=== PATIENT | female | born 1960 | race Caucasian/White ===

== ENCOUNTER 2017-10-27 18:06 | Emergency (ER) | payer BC, OTHER ==
[~2017-10-27] VITALS: Wt 81.4 kg
--- NOTE | 2017-10-27 19:24 | ERD ---
ER Documentation Chief Complaint Chief Complaint SOB, BREAST CA, ON CHEMO, SENT BY PMD FOR LOW H/H HPI The patient is a 57-year-old female, presenting to the ER because of abnormal lab, low hemoglobin. She was advised by her oncologist to go to the hospital. She is having chemotherapy for breast cancer and had received blood transfusion about a month ago. He is awaiting for mastectomy by surgeon Dr. Lema. She denies weakness, syncope, near syncope, neck pain, chest pain, dyspnea, abdominal pain. Does not smoke nor drink Past medical history: History of breast cancer Surgical history: None ROS All systems reviewed and are negative except as per history of present illness. Medications Home Meds Reported Medications Propranolol Hcl* (Propranolol Hcl*) 40 Mg Tablet, 40 MG PO BID, TAB 10/27/17 Allergies Allergies: Coded Allergies: No Known Allergy (Unverified , 10/27/17) Physical Exam Vitals Vital Signs Date Time Temp Pulse Resp B/P Pulse Ox O2 Delivery O2 Flow Rate FiO2 10/28/17 04:31 72 22 113/72 96 Room Air 10/28/17 01:00 70 19 106/80 96 Room Air 10/27/17 23:06 74 21 117/58 99 Room Air 10/27/17 20:17 76 17 123/94 98 Room Air 10/27/17 18:12 97.3 83 17 125/69 100 Physical Exam Const: No acute distress. Head: Atraumatic. Eyes: Normal Conjunctiva. ENT: Normal External Ears, Nose and Mouth. Neck: Full range of motion. No meningismus. Resp: Clear to auscultation bilaterally. Cardio: Regular rate and rhythm. Abd: Soft, non distended, normal bowel sounds, non tender. Skin: No petechiae or rashes. Back: No midline or flank tenderness. Ext: No cyanosis, or edema. Neur: Awake and alert. No focal deficit Psych: Normal Mood and Affect. Result Diagram: 10/27/17192910/27/171929 Results 24 hrs Laboratory Tests Test 10/27/17 19:30 10/28/17 08:05 White Blood Count 3.410^3/ul Red Blood Count 2.2510^6/ul Hemoglobin 7.4g/dl Hematocrit 21.8% Mean Corpuscular Volume 96.9fl Mean Corpuscular Hemoglobin 32.9pg Mean Corpuscular Hemoglobin Concent 33.9g/dl Red Cell Distribution Width 19.5% Platelet Count 28904^3/UL Mean Platelet Volume 9.8fl Neutrophils % 54.1% Lymphocytes % 36.8% Monocytes % 8.8% Eosinophils % 0.3% Basophils % 0.0% Nucleated Red Blood Cells % 0.0/100WBC Neutrophils # 1.910^3/ul Lymphocytes # 1.310^3/ul Monocytes # 0.310^3/ul Eosinophils # 0.010^3/ul Basophils # 0.010^3/ul Nucleated Red Blood Cells # 0.010^3/ul Prothrombin Time 13.2Sec Prothrombin Time Ratio 1.0 INR International Normalized Ratio 0.99 Activated Partial Thromboplast Time 35.4Sec Sodium Level 144mmol/L Potassium Level 3.1mmol/L Chloride Level 103mmol/L Carbon Dioxide Level 32mmol/L Anion Gap 12 Blood Urea Nitrogen 15mg/dl Creatinine 1.12mg/dl Glucose Level 95mg/dl Calcium Level 9.0mg/dl Total Bilirubin 0.7mg/dl Direct Bilirubin 0.00mg/dl Indirect Bilirubin 0.7mg/dl Aspartate Amino Transf (AST/SGOT) 27IU/L Alanine Aminotransferase (ALT/SGPT) 35IU/L Alkaline Phosphatase 41IU/L Total Protein 6.5g/dl Albumin 3.6g/dl Globulin 2.90g/dl Albumin/Globulin Ratio 1.24 Lab Scanned Report BLOOD [id number] Current Medications Medications (Trade) Dose Ordered Sig/Robert Route PRN Reason Start Time Stop Time Status Last Admin Dose Admin Potassium Chloride 40 meq 40 meq ONCE STAT PO 10/27/17 20:25 10/27/17 20:28 DC 10/27/17 21:02 Sodium Chloride (NS) 1,000 ml @ 100 mls/hr Q10H IV 10/28/17 16:00 10/28/17 16:00 DC IV Flush (NS 3 ml) 3 ml PER PROTOCOL IV 10/28/17 05:00 10/28/17 09:32 DC Ondansetron HCl (Zofran Inj) 4 mg Q6H PRN IV NAUSEA AND/OR VOMITING 10/28/17 05:00 10/28/17 09:32 DC Acetaminophen (Tylenol Tab) 650 mg Q6H PRN PO PAIN LEVEL 1-3 OR FEVER 10/28/17 05:00 10/28/17 09:32 DC Morphine Sulfate (morphine) 2 mg Q4H PRN IV SEVERE PAIN LEVEL 7-10 10/28/17 05:00 10/28/17 09:32 DC Pantoprazole (Protonix Iv) 40 mg DAILY@06 IV 10/28/17 06:00 10/28/17 09:32 DC Procedures/MDM EKG: Read by emergency physician Rate/Rhythm: Normal Sinus Rhythm 68 beats/min QRS, ST, T-waves: No ST elevation, no T inversion Impression: Normal EKG MEDICAL MAKING DECISION: The patient is a 57-year-old female, presenting with acute on chronic anemia most likely due to ongoing chemotherapy for her cancer, hypokalemia. I do not suspect any acute GI bleed. She will be treated with 1 unit packed red blood cell prior to being discharged. She is treated with KCL 40 meQ po, is stable for o/p f/u The differential diagnoses considered include but are not limited to gastritis, peptic ulcer disease, esophageal varices, Vianey-Juárez tear, carcinoma, polyp, hemorrhoid, fissure, diverticulosis, angiodysplasia. Departure Diagnosis: Primary Impression: Anemia Additional Impressions: Hypokalemia Leukopenia Condition: Good Comments I discussed the findings with the patient. I advised the patient to follow-up with the primary physician in about 1-2 days, sooner if needed and return if any concern. Disclaimer: Inadvertent spelling and grammatical errors are likely due to EHR/ dictation software use and do not reflect on the overall quality of patient care. Also, please note that the electronic time recorded on this note does not necessarily reflect the actual time of the patient encounter. JOHANNA DAVIS MD Oct 27, 2017 19:24
[2017-10-27 20:14] LABS: EOSINOPHILS % 0.3 % (0.0-7.0); HEMATOCRIT 21.8 % (37.0-47.0); HEMOGLOBIN 7.4 g/dl (12.0-16.0); LYMPHOCYTES # 1.3 10^3/ul (0.8-2.9); LYMPHOCYTES % 36.8 % (15.0-51.0); MEAN CORPUSCULAR HEMOGLOBIN 32.9 pg (29.0-33.0); MEAN CORPUSCULAR HGB CONC 33.9 g/dl (32.0-37.0); MEAN CORPUSCULAR VOLUME 96.9 fl (82.0-101.0); MEAN PLATELET VOLUME 9.8 fl (7.4-10.4); MONOCYTE # 0.3 10^3/ul (0.3-0.9); MONOCYTES % 8.8 % (0.0-11.0); NEUTROPHIL # 1.9 10^3/ul (1.6-7.5); NEUTROPHILS % 54.1 % (39.0-77.0); PLATELET COUNT 160 10^3/UL (140-415); RED BLOOD COUNT 2.25 10^6/ul (4.20-5.40); RED CELL DISTRIBUTION WIDTH 19.5 % (11.5-14.5); WHITE BLOOD COUNT 3.4 10^3/ul (4.8-10.8)
[2017-10-27 20:18] LABS: INR 0.99; PROTIME 13.2 Sec (11.9-14.9)
[2017-10-27 20:19] LABS: PARTIAL THROMBOPLASTIN TIME 35.4 Sec (25.0-35.0)
[2017-10-27 20:21] LABS: ALBUMIN 3.6 g/dl (3.3-4.9); ALBUMIN/GLOBULIN RATIO 1.24; BILIRUBIN,INDIRECT 0.7 mg/dl (0-1.1); BILIRUBIN,TOTAL 0.7 mg/dl (0.2-1.3); CREATININE 1.12 mg/dl (0.44-1.00); POTASSIUM 3.1 mmol/L (3.5-5.1); TOTAL PROTEIN 6.5 g/dl (6.1-8.1)
[2017-10-27] MEDS ORDERED: POTASSIUM CHLORIDE (SR) 20 MEQ TAB PO STA (20:25)
[2017-10-27] MEDS ORDERED: PROP40TA4 PO (22:57)
[2017-10-28 04:31] VITALS: BP 113/72; PULSE 72; RESP 22
[2017-10-28] MEDS ORDERED: ONDANSETRON 4 MG INJ IV PRN (05:00)
[2017-10-28] MEDS ORDERED: NACL 0.9% 3 ML SYG IV SCH (05:00)
[2017-10-28] MEDS ORDERED: morphine 2 MG INJ IV PRN (05:00)
[2017-10-28] MEDS ORDERED: ACETAMINOPHEN 325 MG TAB PO PRN (05:00)
[2017-10-28] MEDS ORDERED: PANTOPRAZOLE 40 MG INJ IV SCH (06:00)
--- NOTE | 2017-10-28 10:34 | HP ---
Date/Time of Note Date/Time of Note DATE: 10/28/17 TIME: 10:30 Assessment/Plan Assessment/Plan Assessment/Plan ASSESSMENT 57-year-old female with a history of breast cancer on chemo with progressively worsening generalized weakness is found to be anemic, receiving blood transfusion in the ER PLAN Continue blood transfusion Check for ferritin and iron to evaluate for iron deficiency Patient will follow up with her oncologist upon discharge for her breast cancer HPI/ROS Admit Date/Time Admit Date/Time Hx of Present Illness This is a 57-year-old female with a history of breast cancer on chemo who was sent by her oncologist for anemia. Patient reported generalized weakness that has been progressively getting worse. Patient denied hematemesis, dark stool or bright red blood per rectum. She also denied vaginal bleeding. When she presented to the ER, she was found to have a hemoglobin of 7.4, WBC 3.4 with a platelet of 160. Patient has received blood transfusion in the ER awaiting admission. PMH/Family/Social Social History Smoking Status: Never smoker Exam/Review of Systems Vital Signs Vitals Vital Signs Date Time Temp Pulse Resp B/P Pulse Ox O2 Delivery O2 Flow Rate FiO2 10/28/17 04:31 72 22 113/72 96 Room Air 10/27/17 18:12 97.3 Intake and Output 10/27/17 10/27/17 10/28/17 15:00 23:00 07:00 Intake Total 300 ml Balance 300 ml Labs Result Diagram: 10/27/17192910/27/171929 MARCEL WHITFIELD MD Oct 28, 2017 10:34
[2017-10-28] MEDS ORDERED: SOD CHLORIDE 0.9% 1,000 ML IV SCH (16:00)
== END 2017-10-28 05:04 | disposition home or self-care (01) ==
LOC: E/R 18:06
DX: D64.9 Anemia, unspecified (principal); E87.6 Hypokalemia; D72.819 Decreased white blood cell count, unspecified; Z85.3 Personal history of malignant neoplasm of breast
CPT/HCPCS: 36415; 36430; 80053; 85025; 85610; 85730; 86850; 86900; 86901; 86920; 93005; 99285; P9016; Z7610

== ENCOUNTER 2017-11-12 05:22 | Inpatient (IN) | payer BC ==
[2017-11-11 15:36] VITALS: BMI 26.5
[~2017-11-12] VITALS: Ht 172.7 cm; Wt 77.4 kg
[2017-11-12] VITALS (28 sets, daily range): BP systolic 118–163; BP diastolic 59–89; PULSE 62–72; RESP 17–20; Ht 172.7 cm; Wt 77.4 kg
[~2017-11-12 05:22] MED LIST: PROP40TA4 PO
[2017-11-12] MEDS ORDERED: SOD CHLORIDE 0.9% 1,000 ML IV SCH ×2 (06:00→11:00)
[2017-11-12] MEDS ORDERED: SUMA100T9 PO (06:56)
[2017-11-12] MEDS ORDERED: MIDAZOLAM 1 MG/ML 2 ML INJ ONE (07:20)
[2017-11-12] MEDS ORDERED: PROPOFOL 20 ML ONE (07:20)
[2017-11-12] MEDS ORDERED: ROCURONIUM 50 MG INJ ONE ×3 (07:20→10:37)
[2017-11-12] MEDS ORDERED: PROPOFOL 100 ML ONE ×2 (07:20→10:37)
[2017-11-12] MEDS ORDERED: LIDOCAINE 2% (SDV) 5 ML INJ ONE ×2 (07:20→07:44)
[2017-11-12] MEDS ORDERED: FAMOTIDINE 20 MG INJ ONE (07:21)
[2017-11-12] MEDS ORDERED: DEXAMETHASONE 4 MG/ML 1 ML INJ ONE (07:21)
[2017-11-12] MEDS ORDERED: ONDANSETRON 4 MG INJ ONE (07:21)
[2017-11-12] MEDS ORDERED: ACETAMINOPHEN 1000MG/100ML IV 100 ML ONE (07:21)
[2017-11-12] MEDS ORDERED: POLYMYXIN/BACITRACIN 1L IRRIG ONE ×2 (07:25→09:53)
[2017-11-12] MEDS ORDERED: SODIUM CL BACTERIOSTATIC 30 ML INJ ONE (07:27)
[2017-11-12] MEDS ORDERED: BUPIVACAINE 0.5%/EPI (SDV) 30 ML INJ ONE (07:27)
[2017-11-12] MEDS ORDERED: GENTAMICIN 80 MG INJ ONE ×2 (07:27→09:53)
[2017-11-12] MEDS ORDERED: BUPIVACAINE LIPOSOME/PF 266 MG/20 ML VIAL INFIL SCH (07:30)
--- NOTE | 2017-11-12 07:45 | HPN ---
Date/Time of Note Date/Time of Note DATE: 11/12/17 TIME: 07:45 Interval H&P Admission Note Pt. seen H&P reviewed: No system changes JORDIN PARKS MD Nov 12, 2017 07:45
[2017-11-12] MEDS ORDERED: KETOROLAC 30 MG INJ ONE (08:09)
[2017-11-12] MEDS ORDERED: SUGAMMADEX SODIUM 200 MG/2 ML VIAL IV ONE (10:40)
[2017-11-12] MEDS ORDERED: MEPERIDINE 25 MG INJ IV PRN (11:00)
[2017-11-12] MEDS ORDERED: CEFAZOLIN 2 GM/50 ML (PMX) 50 ML IVPB SCH (11:00)
[2017-11-12] MEDS ORDERED: morphine (1 MG/ML) 10ML SYRINGE IV PRN (11:00)
[2017-11-12] MEDS ORDERED: FENTAnyl 50 MCG/ML VIAL IV PRN (11:00)
[2017-11-12] MEDS ORDERED: ONDANSETRON 4 MG INJ IV PRN (11:00)
[2017-11-12] MEDS ORDERED: KETOROLAC 30 MG INJ IV PRN (11:00)
--- NOTE | 2017-11-12 11:12 | OPR ---
DATE OF OPERATION: 11/12/2017 PREOPERATIVE DIAGNOSIS: Locally advanced right breast cancer, need for right modified radical maste ctomy and left simple mastectomy. POSTOPERATIVE DIAGNOSIS: Locally advanced right breast cancer, need for right modified radical mast ectomy and left simple mastectomy. PROCEDURE: Right modified radical mastectomy with resection of accessory axillary breast tissue and left simple mastectomy with resection of accessory axillary breast cancer and immediate reconstruct ion. SURGEON: Warner Lema MD, and plastic surgeon, Dr. Rashi Ureña. JOINTER OPERATOR: Dr. Malachi Aviles. INDICATIONS FOR PROCEDURE: The patient is an unfortunate 57-year-old female who presented with a la rge right breast mass. She was found to be HER2 positive. She was thus treated with neoadjuvant ch emotherapy and upon completing her treatment to which she had a good response. She was counseled as to the need for right modified radical mastectomy. She also requested reconstruction. She was alexandra luated by attending plastic surgeon, Dr. Rashi Ureña, and the decision was made that she would hav e bilateral mastectomies and bilateral reconstruction. She consented and was scheduled for surgery. DESCRIPTION OF PROCEDURE: The patient was brought to the operating theater, placed under general an esthesia. The breast and axillary regions were prepped and draped in sterile fashion bilaterally. Planned elliptical incisions around the nipple areolar complex had been previously demarcated by Dr. Ureña. Attention was directed to the right side. The incision was carried out with 15 blade scal pel. Subcutaneous tissue was dissected with cautery. The skin edges were then elevated with skin h ooks and skin flaps were created in a sequential fashion using cautery, first superiorly to the clav icle, then medially to the sternal border, inferiorly to the inframammary fold and laterally until t he latissimus dorsi muscle was identified throughout its course. Mastectomy then took place from me dial to lateral. There was significant inflammatory tissue which resulted in some bleeding. Therefo re, Dr. Lema asked that 1 unit of blood be requested as the patient's initial hemoglobin was 10, th e blood was transfused uneventfully and mastectomy continued until the border of the pectoralis biju r was identified. Subsequently, the pectoralis minor was identified. Clavipectoral fascia was inci sed axilla was entered. There were significant enlarged axillary lymph nodes consistent with a previously known metastatic d isease. It was not clear if this represented necrotic tumor or viable tumor. A level 1 and 2 lymph node dissection was performed. Blunt dissection was used along the chest wall to identify the long thoracic nerve and keep it out of harm's way. More superiorly, the axillary vein was identified an d dissected from medial to lateral. Thoracodorsal neurovascular bundle was identified, dissected th roughout its course and kept out of harm's way. Node bearing tissue between the long thoracic nerve and thoracodorsal nerve was then harvested with the LigaSure device. Final connective tissue attac hments at latissimus dorsi muscle were then transected. The specimen was oriented and sent for perm anent pathologic analysis. Dr. Lema inspected the superior flap. There appeared to be some suspicious tissue. A portion of t he muscle was resected and sent for intraoperative frozen section analysis performed by attending pa thologist, Dr. Constantine Oseguera. It was negative for evidence of malignancy. Dr. Lema then directed his attention to resecting the accessory axillary tissue which the patient had requested prior to s urgery. This was done uneventfully and sent for permanent pathologic analysis. The wound was irrig ated. Minimal bleeding was controlled with cautery. Attention was then directed to the left side. Again, the planned elliptical incision had been sergio cated by Dr. Ureña. It was carried out with 15 blade scalpel. Subcutaneous tissue was dissected w ith cautery. The skin edges were then elevated with skin hooks and skin flaps were created in seque ntial fashion using cautery, first superiorly to the clavicle, then medially to sternal border, infe riorly to the inframammary fold and laterally until the latissimus dorsi muscle was identified throu ghout its course. Mastectomy then took place from medial to lateral using cautery. At the border o f the pectoralis major muscle, the pectoralis minor muscle was identified and the residual axillary tail of the breast was then resected using cautery. The breast was removed, oriented and sent for p ermanent pathologic analysis. The accessory breast tissue in the axilla was then resected and using cautery, it was sent for permanent pathologic analysis. Wound was irrigated. Minimal bleeding was controlled with cautery. At this point, Dr. Ureña entered the room and took over control of the o peration where he performed immediate reconstruction. He will dictate that portion of the operation separately. The estimated blood loss for Dr. Lema' portion of the operation was approximately 500 mL. There we re no complications. Dictated By: WARNER LEMA MD TL/NTS Conf#: [id number] DID#: [id number] CC: MALACHI AVILES MD; RASHI UREÑA MD;*EndCC*
[2017-11-12] MEDS ORDERED: HYDROmorphONE 2 MG/ML SYG ONE (11:26)
[2017-11-12 11:36] LABS: HEMATOCRIT 27.4 % (37.0-47.0); HEMOGLOBIN 9.2 g/dl (12.0-16.0)
[2017-11-12 12:10] LABS: INR 1.14; PROTIME 14.8 Sec (11.9-14.9); PT RATIO 1.2
[2017-11-12] MEDS ORDERED: GLYCOPYRROLATE 0.4 MG INJ ONE (12:13)
--- NOTE | 2017-11-12 12:58 | OPR ---
Date/Time of Note Date/Time of Note DATE: 11/12/17 TIME: 12:49 Operative Report Free Text/Dictation Plastic Surgery Operative Report Preoperative diagnosis: right breast CA Postoperative diagnosis: same Procedure: bilateral direct to implant breast reconstruction with alloderm Surgeon:carolyn Arango.: dr. mdconough Anesthesia: gen EBL:minimal for plastic surgery portion of the procedure IV fluids: per anesthesia flow sheet Findings: n/a Complications: none Dispo:floor Indications for procedure: Patient presents today for bilateral breast reconstruction with direct to implant and AlloDerm. The risks, benefits, alternatives of performing this procedure were discussed with the patient including the risks of bleeding, infection, wound healing problems, asymmetry, need for revision, as well as implant related complications such as deflation, capsular contracture. We discussed that the breast will not be symmetric. If radiation is needed on the right side, able further impact the result. She states that she understands these risks and would like to proceed with the procedure. All questions were answered, no guarantees were given with regards to the outcome of this procedure. Description of procedure: The patient was brought to the operating room at [facility] where general anesthesia was induced and she was prepped and draped in usual sterile fashion. The mastectomy portion of the procedure was performed by Dr. Lema. In conversation with him after his procedure was completed, there was a significant amount of bleeding that he noted. He gave a unit of blood. He also felt that clinically there may be positive lymph nodes on the right side. Therefore, we will attempt to set the right breast lower slightly than the left breast to account for the changes of radiation. After completion of Dr. Carl's portion of the procedure, I scrubbed into the case. Attention was first turned to the right breast. There was a moderate amount of diffuse oozing throughout. The breast was irrigated with multiple rounds of antibiotic irrigation and hemostasis was achieved with electrocautery. This took several minutes to get control of the bleeding. Once the breast appeared to be dry, 0 Vicryl suture was used to tack the axillary wall back to the chest wall. This was done in multiple places. Additional hemostasis was carried out. Next, a piece of AlloDerm large thick was opened, bathed in saline to remove the preservative, and was then tacked in place to the inframammary fold of the breast. This extended medially and laterally. Next, the pectoralis muscle was elevated under direct visualization from lateral to medial. A sizer was then opened that was 275 cc moderate plus. This was inserted into the breast. The skin was towel clipped closed. I felt that this was a largest size that would not place the breast skin flaps on undue tension and lead to mastectomy skin flap necrosis. Therefore, the AlloDerm was tacked to the pectoralis muscle laterally. Attention was then turned to the left breast where a similar procedure was carried out. Multiple rounds of antibiotic irrigation and hemostasis were performed. The 0 Vicryl suture was used to tack the axillary skin back to the chest wall in multiple locations. A piece of AlloDerm large thick was opened, bathed in saline, and was tacked to the inframammary fold of the breast. Next, the pectoralis muscle was elevated under direct visualization from lateral to medial. The sizer was placed into the left breast in the AlloDerm was tacked to the pectoralis muscle laterally. Measurements were taken to ensure that the AlloDerm was tacked symmetrically to the pectoralis muscle and that the right breast was slightly lower than the left breast to account for radiation. This appeared to be intact. Next, additional hemostasis was carried out and 2 #15 Antoine drains were inserted into each breast laterally through stab incisions. There was a hole in the upper outer left axilla from the mastectomy portion of the procedure , and this was used as 1 of the drain holes. The drains were held in place with 2-0 nylon suture. Next, 30 cc of a dilute Exparel solution were injected into each breast to help with postop analgesia. The breasts were irrigated again with antibiotic irrigation. There was some diffuse oozing laterally from the right breast. Multiple rounds of hemostasis were carried out, and then FloSeal was applied to this area. It appeared to be dry at this point. Therefore, gloves were changed, and then an Allergan [id number] style implant serial number [id number] was opened, rinsed antibiotic irrigation, and was inserted into the right breast with minimal touch technique. The same size and style implant serial #[id number] was opened, rinsed antibiotic irrigation, and was inserted in the left breast with minimal touch technique. The pectoralis muscle was then tacked to the AlloDerm on the superior border. The skin was Oliver clip close. The patient was sat up on the operating room table, the breasts were inspected, and the desired result have been achieved. Therefore, the patient was sat back down, and a final round of hemostasis was carried out on each side, and then the breast skin was closed with 3-0 Vicryl suture followed by 4-0 Monocryl suture and then Dermabond. The skin was dressed with Tegaderm. The patient tolerated the procedure well, there were no complications , she will remain in-house tonight. Preoperative Diagnosis right breast CA Postoperative Diagnosis same Surgeon see signature line Automatic Driller And Reamer dr mcdonough Anesthesia Type: general Estimated Blood Loss: minimal Transfusion none Specimen none Grafts/Implants alloderm and breast implants Complications none Procedure Description see dictation JORDIN PARKS MD Nov 12, 2017 12:58
[2017-11-12] MEDS ORDERED: HYDROmorphONE 0.5 MG/0.5 ML SYG IV PRN ×2 (13:00→18:00)
[2017-11-12] MEDS ORDERED: HYDROCODONE/APAP (10/325) TAB GTB PRN (13:00)
[2017-11-12] MEDS ORDERED: ACETAMINOPHEN 325 MG TAB PO PRN (13:00)
[2017-11-12] MEDS ORDERED: DIPHENHYDRAMINE 50 MG INJ IV PRN (13:00)
[2017-11-12 13:03] LABS: PARTIAL THROMBOPLASTIN TIME 33.7 Sec (25.0-35.0)
[2017-11-12] MEDS: HYDROmorphONE (0.2 MG/ML) 10ML SYG IV PRN ×2 (13:31→14:35)
[2017-11-12] MEDS ORDERED: HYDROmorphONE 2 MG/ML SYG IV ONE (14:30)
[2017-11-12] MEDS ORDERED: HYDROmorphONE 2 MG/ML SYG IV SCH (15:00)
[2017-11-12] MEDS ORDERED: SUMATRIPTAN 50 MG TAB PO PRN (16:30)
--- NOTE | 2017-11-12 16:55 | HP ---
Date/Time of Note Date/Time of Note DATE: 11/12/17 TIME: 16:42 Assessment/Plan VTE Prophylaxis VTE Prophylaxis Intervention: SCD's Lines/Catheters IV Catheter Type (from Nrsg): Peripheral IV Assessment/Plan Assessment/Plan 57-year-old female with: 1. Status post bilateral mastectomy and immediate reconstruction, known right breast cancer, POD#0, [address] Pain control, IV fluids, follow-up further general surgery recommendation 2. Migraine headaches, patient on propanolol and Imitrex as needed, to be continued. 3. Anxiety disorder: Xanax as needed 4. Hypertension: We will resume lisinopril 10 mg p.o. daily for blood pressure control once patient able to tolerate p.o. Prophylaxis: Pepcid for GI prophylaxis, SCDs for DVT prophylaxis Disposition: Follow-up surgical recommendations in a.m. HPI/ROS Admit Date/Time Admit Date/Time Nov 12, 2017 at 05:22 Hx of Present Illness Chief complaint: Right breast cancer, elective bilateral mastectomy History of presenting illness: This is a 57-year-old female with diagnosis of migraine headaches, anxiety disorder, right breast cancer who was brought in electively by Dr. Lema for bilateral mastectomy and patient also had immediate reconstruction with plastic surgery. She is doing well postoperatively, she seen in recovery, she is requiring some pain medications but vital signs are stable. She is admitted to a medical surgical floor for pain control and postoperative care ROS Constitutional: no complaints Eyes: no complaints ENT: no complaints Respiratory: no complaints Gastrointestinal: no complaints Genitourinary: no complaints Musculoskeletal: no complaints Skin: no complaints Neurologic: no complaints Endocrine: no complaints Lymphatic: no complaints Additional Comments Status post bilateral mastectomy PMH/Family/Social Past Medical History Breast cancer Migraine headache Anxiety disorder Past Surgical History Status post left breast biopsy which was benign per records Status post skin biopsy came back as basal cell leg/face Family History Significant Family History: no pertinent family hx Social History Alcohol Use: none Smoking Status: Never smoker Drug Use: none Exam/Review of Systems Vital Signs Vitals Vital Signs Date Time Temp Pulse Resp B/P Pulse Ox O2 Delivery O2 Flow Rate FiO2 11/12/17 14:26 68 147/70 99 Nasal Cannula 2.0 11/12/17 13:41 17 11/12/17 12:47 98.4 Exam Constitutional: alert, oriented, other (Lethargic coming out of anesthesia), well developed Respiratory: clear to auscultation, normal air movement Cardiovascular: nl pulses, regular rate and rhythm Gastrointestinal: non-tender, soft Musculoskeletal: nl extremities to inspection, nl gait and stance Extremities: normal pulses Neurological: [employer] II-XII intact, lethargic (Postanesthesia), nl mental status, nl speech Additional Comments Status post bilateral mastectomy with for drains in place, 2 on each side with serosanguineous output. Labs Result Diagram: 11/12/17 1118 Medications Medications Current Medications Sodium Chloride (NS) 1,000 ml @ 20 mls/hr Q24H IV ; Start 11/12/17 at 06:00; Stop 11/12/17 at 17:00 Bupivacaine Liposome 266 mg 266 mg INTRA-OP INFIL Last administered on t 11:32; Admin Dose 266 MG; Start 11/12/17 at 07:30 Sodium Chloride 1,000 ml @ 75 mls/hr [id number] IV ; Start 11/12/17 at 11:00; Stop 11/13/17 at 00:19 Cefazolin Sodium/ Dextrose (Ancef 2 Gm/50 ml (Pmx)) 50 ml @ 100 mls/hr Q8H IVPB ; Start 11/12/17 at 13:00; Stop 11/14/17 at 12:59 Acetaminophen (Tylenol Tab) 650 mg Q6H PRN PO PAIN AND OR ELEVATED TEMP; Start 11/12/17 at 13:00 Diphenhydramine HCl (Benadryl) 25 mg Q6H PRN IV ITCHING; Start 11/12/17 at 13: 00 Ondansetron HCl 4 mg 4 mg Q6H PRN IV NAUSEA AND/OR VOMITING; Start 11/12/17 at 13:00 Lactated Ringer's (Lr) 1,000 ml @ 100 mls/hr Q10H IV ; Start 11/12/17 at 12:44 Acetaminophen/ Hydrocodone Bitart (Mckenzie (10/325)) 2 tab Q4H PRN GTB MODERATE PAIN LEVEL 4-6; Start 11/12/17 at 13:00 Propranolol HCl (Inderal) 40 mg BID PO ; Start 11/12/17 at 21:00 Sumatriptan Succinate (Imitrex) 100 mg BID PRN PO MIGRAINE HEADACHE; Start at 16:30 Famotidine (Pepcid Iv) 20 mg BID IV ; Start 11/12/17 at 21:00 Hydromorphone HCl (Dilaudid) 0.5 mg Q4H PRN IV PAIN LEVEL 6-10; Start at 16:30; Status CINDY ROSAS Nov 12, 2017 16:54
[2017-11-12] MEDS ORDERED: ALPRAZOLAM 0.25 MG TAB PO PRN (17:00)
[2017-11-12] MEDS: LACTATED RINGER'S 1,000 ML IV SCH (17:17)
[2017-11-12] MEDS: HYDROmorphONE 0.5 MG/0.5 ML SYG IV PRN ×2 (17:46→21:51)
[2017-11-12] MEDS: ONDANSETRON 4 MG INJ IV PRN (17:50)
[2017-11-12] MEDS: PROPRANOLOL 40 MG TAB PO SCH (21:00)
[2017-11-12] MEDS: FAMOTIDINE 20 MG INJ IV SCH (21:07)
[2017-11-12] MEDS: CEFAZOLIN 2 GM/50 ML (PMX) 50 ML IVPB SCH (21:50)
[2017-11-13] MEDS: HYDROmorphONE 0.5 MG/0.5 ML SYG IV PRN ×2 (01:54→06:01)
[2017-11-13 02:35] VITALS: BP 114/56; RESP 18
[2017-11-13] MEDS: LACTATED RINGER'S 1,000 ML IV SCH ×2 (03:19→08:25)
[2017-11-13] MEDS: CEFAZOLIN 2 GM/50 ML (PMX) 50 ML IVPB SCH ×2 (05:09→12:58)
[2017-11-13 05:58] LABS: ABNORMAL IP MESSAGE 1; BASOPHILS % 0.2 % (0.0-2.0); HEMATOCRIT 23.1 % (37.0-47.0); LYMPHOCYTES # 0.8 10^3/ul (0.8-2.9); LYMPHOCYTES % 12.2 % (15.0-51.0); MEAN CORPUSCULAR HEMOGLOBIN 32.9 pg (29.0-33.0); MEAN CORPUSCULAR HGB CONC 34.6 g/dl (32.0-37.0); MEAN CORPUSCULAR VOLUME 95.1 fl (82.0-101.0); MEAN PLATELET VOLUME 10.4 fl (7.4-10.4); MONOCYTE # 0.5 10^3/ul (0.3-0.9); MONOCYTES % 7.1 % (0.0-11.0); NEUTROPHIL # 5.2 10^3/ul (1.6-7.5); PLATELET COUNT 99 10^3/UL (140-415); RED BLOOD COUNT 2.43 10^6/ul (4.20-5.40); RED CELL DISTRIBUTION WIDTH 19.1 % (11.5-14.5); WHITE BLOOD COUNT 6.5 10^3/ul (4.8-10.8)
[2017-11-13 06:32] LABS: ALBUMIN 2.6 g/dl (3.3-4.9); ALBUMIN/GLOBULIN RATIO 0.96; BILIRUBIN,INDIRECT 0.4 mg/dl (0-1.1); BILIRUBIN,TOTAL 0.4 mg/dl (0.2-1.3); CALCIUM 8.3 mg/dl (8.4-10.2); CREATININE 0.95 mg/dl (0.44-1.00); POTASSIUM 4.5 mmol/L (3.5-5.1); TOTAL PROTEIN 5.3 g/dl (6.1-8.1)
[2017-11-13 06:33] LABS: POSITIVE DIFF @See below
[2017-11-13 06:47] LABS: MAGNESIUM 1.1 mg/dl (1.7-2.5); PHOSPHORUS 4.3 mg/dl (2.5-4.9)
[2017-11-13 08:00] VITALS: BP 132/61; RESP 17
--- NOTE | 2017-11-13 08:15 | PN ---
Date/Time of Note Date/Time of Note DATE: 11/13/17 TIME: 08:14 Assessment/Plan Lines/Catheters IV Catheter Type (from Nrs): Saline Lock Assessment/Plan Assessment/Plan doing well ok to discharge to home at any time from my standpoint general diet Subjective 24 Hr Interval Summary no acute events overnight Exam/Review of Systems Vital Signs Vitals Vital Signs Date Time Temp Pulse Resp B/P Pulse Ox O2 Delivery O2 Flow Rate FiO2 11/13/17 02:35 97.6 80 18 114/56 92 11/12/17 14:26 Nasal Cannula 2.0 Intake and Output 11/12/17 11/12/17 11/13/17 15:00 23:00 07:00 Intake Total 3850 ml 660 ml 1820 ml Output Total 600 ml 205 ml 250 ml Balance 3250 ml 455 ml 1570 ml Exam Free Text/Dictation general: no distress breasts: incisions intact, no erythema. no hematoma. drains with ss output Results Result Diagram: 11/13/17 0514 11/13/17 0514 JORDIN PARKS MD Nov 13, 2017 08:15
[2017-11-13] MEDS: FAMOTIDINE 20 MG INJ IV SCH (08:26)
[2017-11-13] MEDS: PROPRANOLOL 40 MG TAB PO SCH (08:27)
[2017-11-13] MEDS: ONDANSETRON 4 MG INJ IV PRN ×2 (10:13→18:30)
[2017-11-13] MEDS ORDERED: HYDROCODONE/APAP (10/325) TAB PO PRN (11:00)
--- NOTE | 2017-11-13 11:01 | PN ---
Date/Time of Note Date/Time of Note DATE: 11/13/17 TIME: 11:01 Assessment/Plan VTE Prophylaxis VTE Prophylaxis Intervention: SCD's Lines/Catheters IV Catheter Type (from Nrsg): Saline Lock Assessment/Plan Assessment/Plan 57-year-old female with: 1. Status post bilateral mastectomy and immediate reconstruction, known right breast cancer, POD#1, [address], patient cleared by plastic surgery to go home today, she is declining home health RN for drain care stating that her and her sister can take care of the drains as she is familiar with it. Continue Penryn for pain control, patient already has supply at home. DC IV fluids, follow-up further general surgery recommendation today for discharge planning after 1 unit of packed red blood cells and magnesium given. 2. Migraine headaches, patient on propanolol and Imitrex as needed, to be continued. 3. Anxiety disorder: Xanax as needed 4. Hypertension: Back on home medications. 5. Acute on chronic anemia, patient did have multiple blood transfusion before especially around the time she gets chemotherapy, she did get 1 unit in the OR last night and will get an additional unit today prior to discharge. Prophylaxis: Pepcid for GI prophylaxis, SCDs for DVT prophylaxis Disposition: Follow-up surgical recommendations for discharge planning later today hopefully. Subjective 24 Hr Interval Summary Free Text/Dictation Patient doing well today, pain control, hemodynamically stable. Her hemoglobin is at 8.0, she will be receiving the second unit of packed red blood cells that were ordered from the OR. DC IV fluids, per plastic surgery patient can go home today. She has low magnesium and will be given magnesium pigmentation IV. Patient very insistent on going home today. She already has her pain medications at home. Exam/Review of Systems Vital Signs Vitals Vital Signs Date Time Temp Pulse Resp B/P Pulse Ox O2 Delivery O2 Flow Rate FiO2 11/13/17 08:00 97.5 74 17 132/61 97 11/12/17 14:26 Nasal Cannula 2.0 Intake and Output 11/12/17 11/12/17 11/13/17 15:00 23:00 07:00 Intake Total 3850 ml 660 ml 1820 ml Output Total 600 ml 205 ml 250 ml Balance 3250 ml 455 ml 1570 ml Exam Constitutional: alert, oriented, well developed Respiratory: clear to auscultation, normal air movement Cardiovascular: nl pulses, regular rate and rhythm Gastrointestinal: non-tender, soft Musculoskeletal: nl extremities to inspection Extremities: normal pulses, other (No edema, clubbing or cyanosis) 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 Results Result Diagram: 11/13/1714 11/13/1714 Results 24 hrs Laboratory Tests Test 11/12/17 11:18 11/13/17 05:14 11/13/17 06:23 Hemoglobin 9.2 #L 8.0 L Hematocrit 27.4 #L 23.1 L Prothrombin Time 14.8 Prothrombin Time Ratio 1.2 INR International Normalized Ratio 1.14 Activated Partial Thromboplast Time 33.7 White Blood Count 6.5 # Red Blood Count 2.43 L Mean Corpuscular Volume 95.1 Mean Corpuscular Hemoglobin 32.9 Mean Corpuscular Hemoglobin Concent 34.6 Red Cell Distribution Width 19.1 H Platelet Count 99 #L Mean Platelet Volume 10.4 Neutrophils % 80.0 H Lymphocytes % 12.2 L Monocytes % 7.1 Eosinophils % 0.0 Basophils % 0.2 Nucleated Red Blood Cells % 0.0 Neutrophils # 5.2 Lymphocytes # 0.8 Monocytes # 0.5 Eosinophils # 0.0 Basophils # 0.0 Nucleated Red Blood Cells # 0.0 Sodium Level 138 Potassium Level 4.5 Chloride Level 108 Carbon Dioxide Level 19 L Anion Gap 16 Blood Urea Nitrogen 18 Creatinine 0.95 Glucose Level 109 Calcium Level 8.3 L Phosphorus Level 4.3 Magnesium Level 1.1 L Total Bilirubin 0.4 Direct Bilirubin 0.00 Indirect Bilirubin 0.4 Aspartate Amino Transf (AST/SGOT) 22 Alanine Aminotransferase (ALT/SGPT) 33 Alkaline Phosphatase 32 L Total Protein 5.3 L Albumin 2.6 L Globulin 2.70 Albumin/Globulin Ratio 0.96 Lab Scanned Report BLOOD TRANSFUSION Medications Medications Current Medications Bupivacaine Liposome 266 mg 266 mg INTRA-OP INFIL Last administered on 11:32; Admin Dose 266 MG; Start 11/12/17 at 07:30 Cefazolin Sodium/ Dextrose (Ancef 2 Gm/50 ml (Pmx)) 50 ml @ 100 mls/hr Q8H IVPB Last administered on 11/13/17 05:09; Admin Dose 100 MLS/HR; Start 11/12 at 13:00; Stop 11/14/17 at 12:59 Acetaminophen (Tylenol Tab) 650 mg Q6H PRN PO PAIN AND OR ELEVATED TEMP; Start 11/12/17 at 13:00 Diphenhydramine HCl (Benadryl) 25 mg Q6H PRN IV ITCHING; Start 11/12/17 at 13: 00 Ondansetron HCl 4 mg 4 mg Q6H PRN IV NAUSEA AND/OR VOMITING Last administered on 11/13/17 10:13; Admin Dose 4 MG; Start 11/12/17 at 13:00 Lactated Ringer's (Lr) 1,000 ml @ 100 mls/hr Q10H IV Last administered on 03:19; Admin Dose 100 MLS/HR; Start 11/12/17 at 12:44 Acetaminophen/ Hydrocodone Bitart (Penryn (10/325)) 2 tab Q4H PRN GTB MODERATE PAIN LEVEL 4-6 Last administered on 11/13/17 10:14; Admin Dose 2 TAB; Start 11/12/17 at 13:00 Propranolol HCl (Inderal) 40 mg BID PO Last administered on 11/13/17 08:27; Admin Dose 40 MG; Start 11/12/17 at 21:00 Sumatriptan Succinate (Imitrex) 100 mg BID PRN PO MIGRAINE HEADACHE; Start at 16:30 Famotidine (Pepcid Iv) 20 mg BID IV Last administered on 11/13/17 08:26; Admin Dose 20 MG; Start 11/12/17 at 21:00 Alprazolam 0.25 mg 0.25 mg Q8H PRN PO ANXIETY; Start 11/12/17 at 17:00 Magnesium Sulfate (Magnesium Sulfate 4 Gm/100 ml) 100 ml @ 25 mls/hr ONCE ONCE IVPB ; Start 11/13/17 at 11:00; Stop 11/13/17 at 14:59; Status CINDY ROSAS Nov 13, 2017 11:01
[2017-11-13] MEDS ORDERED: MAGNESIUM SULFATE 4 GM/100 ML 100 ML IVPB ONE (12:30)
[2017-11-13 14:00] VITALS: BP 139/67; RESP 18
[2017-11-13] MEDS: HYDROCODONE/APAP (10/325) TAB PO PRN ×2 (14:34→18:31)
--- NOTE | 2017-11-13 14:36 | PDOCDIS ---
Discharge Instructions CONDITION Patient Condition: Stable HOME CARE INSTRUCTIONS: Diet Instructions: Regular ACTIVITY: Activity Restrictions: Slowly Increase Activity FOLLOW UP/APPOINTMENTS Follow-up Plan Follow-up with primary care physician within 1-2 weeks Follow-up with Dr. Lema within 1-2 weeks Follow-up with outpatient oncologist OTHER ORDERS: Other Orders: Please provide patient with education regarding drain care and further postop instruction per from Dr. Lema and CINDY Jackson Nov 13, 2017 14:36
[2017-11-13] MEDS ORDERED: Hydrocodone/Apap (10/325) PO (14:38)
--- NOTE | 2017-11-13 19:50 | PN ---
DATE: 11/13/2017 Postop day #1 status post bilateral mastectomy and immediate reconstruction with silicone prosthesis SUBJECTIVE: Apparently, the patient's hemoglobin was low today morning at 8 even though he received 1 unit of packed cells during the operation, so the patient is receiving 1 more unit of blood now. The patient wants to go home as soon as possible. Magnesium has been slightly low, so it is being replaced as well. OBJECTIVE: VITAL SIGNS: Temperature 97.5, heart rate 74, respirations 17, blood pressure 132/61, saturation 97 % on room air. LABORATORY DATA: WBC 6500 with 80% segmented, hemoglobin 8, hematocrit 30.1, now the patient is rec eiving 1 unit of packed cells. Magnesium 1.1. Patient is receiving replacement magnesium IV. The re are 4 Jimmy-Wilson drains two under each axilla. Jimmy-Wilson total drainage since operation y noon until today morning at 7:00 has been 455 mL semi-bloody right now. From 7:00 a.m. til l now 4:00 p.m. the drainage is not serosanguineous but trending towards serosanguineous and total in 4 bags is about 150 mL. The patient has been instructed how to take care of the Jimmy-Wilson ho w to drain them and how to measure the amount. From surgical point of view, the patient is stable a nd when the blood transfusion is finished and magnesium was corrected. The patient can be discharge d as he has already been discharged by Dr. Ureña, the plastic surgeon. The patient to see Dr. Alegre ch in the office on November [address] Lema on November 21, 2017 and take antibiotic as has been given by Dr. Ureña. Dictated By: RAUL AVILES MD PS/NTS Conf#: [id number] DID#: [id number] CC: RAUL AVILES MD;*EndCC*
== END 2017-11-13 19:22 | disposition home or self-care (01) | DRG 580 ==
LOC: REC 05:22 → EDSTATUS 07:30 → PP2 15:00
PROVIDERS: ADMIT Surgery Surgical Oncology; ATTEND Surgery Surgical Oncology
PROC: 0KBH0ZZ Excision of Right Thorax Muscle, Open Approach (ICD-10-PCS; 2017-11-12)
PROC: 0HRV0JZ Replacement of Bilateral Breast with Synthetic Substitute, Open Approach (ICD-10-PCS; principal; 2017-11-12 07:30)
PROC: 07B50ZX Excision of Right Axillary Lymphatic, Open Approach, Diagnostic (ICD-10-PCS; 2017-11-12 07:30)
PROC: 30233N1 Transfusion of Nonautologous Red Blood Cells into Peripheral Vein, Percutaneous Approach (ICD-10-PCS; 2017-11-13)
DX: C50.911 Malignant neoplasm of unspecified site of right female breast (principal); C77.3 Secondary and unspecified malignant neoplasm of axilla and upper limb lymph nodes; I10 Essential (primary) hypertension; D64.9 Anemia, unspecified; Z17.0 Estrogen receptor positive status [ER+]; Z92.21 Personal history of antineoplastic chemotherapy; Z85.828 Personal history of other malignant neoplasm of skin
CPT/HCPCS: 36430; 80053; 83735; 84100; 85014; 85018; 85025; 85610; 85730; 86850; 86900; 86901; 86920; 88307; C9290; J0131; J0690; J1100; J1170; J1580; J1885; J2250; J2405; J3010; J7030; J7120; P9016